=== PATIENT | female | born 1995 | race African-American/Black ===

== ENCOUNTER 2019-01-29 17:07 | Emergency (ER) | payer OTHER ==
[2019-01-29] MEDS ORDERED: MECLIZINE HCL 25 MG TABLET (FP) PO ONE (17:10)
--- NOTE | 2019-01-29 17:10 | PDOC ---
Rapid Medical Evaluation Time Seen by Provider: 01/29/19 17:07 Medical Evaluation: 01/29/19 17:08 CC: Headache x9 days with brief episodes of dizziness PE: No focal findings. Orders: ekg, meclizine Patient will proceed to ED for continued evaluation. Discharge Disposition - Diagnosis Dizziness - Referrals - Patient Instructions - Post Discharge Activity
[2019-01-29 17:12] VITALS: BP 140/86; PULSE 73; TEMP 98.6; BMI 31.9
[2019-01-29] MEDS ORDERED: MECLIZINE HCL 25 MG TABLET (FP) ONE (17:25)
--- NOTE | 2019-01-29 17:39 | PDOC ---
History of Present Illness - General Chief Complaint: Lightheaded Stated Complaint: Headache Time Seen by Provider: 01/29/19 17:07 - History of Present Illness Initial Comments: 01/29/19 17:39 CHIEF COMPLAINT: dizziness HISTORY OF PRESENT ILLNESS: 23 yo F with no recent hx of otitis media (this summer) presents to [facility] with headache/dizziness x 1 week. Patient reports waking up with a headache the and gradually throughout the day she feels dizzy. She reports the dizziness is worse when changing position "like when I get up". She endorses nausea yesterday but denies vomiting, denies nausea today. Patient states she is on control and denies any chance of . No recent travel or sick contacts. PAST MEDICAL HISTORY: Denies past medical history FAMILY HISTORY: Denies SOCIAL HISTORY:Denies tobacco, alcohol, illicit drug use. SURGICAL HISTORY: Denies ALLERGIES: No known drug allergies REVIEW OF SYSTEMS General/Constitutional: Denies fever or chills. Denies weakness, weight change. HEENT: Denies change in vision. Denies ear pain or discharge. Denies sore throat. Cardiovascular: Denies chest pain or shortness of breath. Respiratory: Denies cough, wheezing, or hemoptysis. Gastrointestinal: Denies nausea, vomiting, diarrhea or constipation. Denies rectal bleeding. Genitourinary: Denies dysuria, frequency, or change in urination. Musculoskeletal: Denies joint or muscle swelling or pain. Denies neck or back pain. Skin and breasts: Denies rash or easy bruising. Neurologic: Headache, dizziness. Denies loss of consciousness, or loss of sensation. Psychiatric: Denies depression or anxiety. PHYSICAL EXAM General Appearance: Well-appearing, appropriately dressed. No apparent distress. HEENT: EOMI, PERRLA, normal ENT inspection, normal voice, TMs normal, pharynx normal. No conjunctival pallor. No photophobia, scleral icterus. Neck: Supple. Trachea midline. No tenderness, rigidity, carotid bruit, stridor , lymphadenopathy, or thyromegaly. Respiratory/Chest: Lungs CTAB. No shortness of breath, chest tenderness, respiratory distress, accessory muscle use. No crackles, rales, rhonchi, stridor , wheezing, dullness Cardiovascular: RRR. S1, S2. No JVD, murmur, bradycardia, tachycardia. Vascular Pulses: Dorsalis-Pedis (R): 2+, Dorsalis-Pedis (L): 2+ Gastrointestinal/Abdominal: Normal bowel sounds. Abdomen soft, non-distended. No tenderness or rebound tenderness. No organomegaly, pulsatile mass, guarding , hernia, hepatomegaly, splenomegaly. Lymphatic: No adenopathy, tenderness. Musculoskeletal/Extremities: Normal inspection. FROM of all extremities, normal capillary refill. Pelvis Stable. No CVA tenderness. No tenderness to extremities, pedal edema, swelling, erythema or deformity. Integumentary: Appropriate color, dry, warm. 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 Fully oriented, alert. Appropriate mood/affect. Motor strength 5/5. No appreciable EOM palsy, facial droop or sensory deficit. A&Ox3, follow commands, respond appropriately CN2-12: conjugate gaze, pupil round, equal and reactive to light. Visual field full to confrontation. EOMI without nystagmus, pursuit is smooth without saccade. Facial sensation and muscle activation intact bilaterally. Hearing intact bilaterally. Palate elevate symmetrically. Shoulder shrug and neck turn full strength. Tongue protrude midline. Motor: UE and LE strength 5/5 throughout bilaterally. Muscle tone and bulk normal. L shoulder abd 5/5 elbow F/E 5/5 wrist F/E 5/5 finger F/E 5/5 R shoulder abd 5/5 elbow F/E 5/5 wrist F/E 5/5 finger F/E 5/5 L hip F/E 5/5 knee F/E 5/5 ankle F/E 5/5 R hip F/E 5/5 knee F/E 5/5 ankle F/E 5/5 Sensory: pin prick & temp : BUE & BLE intact and equal bilaterally Vibration & propioception: intact bilaterally at 1st MCP and MTP joints. no sensory level noted on trunk Reflex: biceps brachioradialis triceps patellar achilles L 2+ 2+ 2+ 2+ 2+ R 2+ 2+ 2+ 2+ 2+ Plantar reflex downwards bilaterally. Cerebellar: Rapid-alternating movement with regular rhythm without bradykinesia. Rihfyu-vy-ulbg and fpad-di-tqoz intact bilaterally without dysmetria or overshoot. Gait narrow based. No shuffling. Full hip flexion and knee flexion. Negative Romberg No involuntary movement noted. No pronator drift. No clonus. 01/29/19 17:46 01/29/19 17:47 Past History - Past Medical History Allergies/Adverse Reactions: Allergies Allergy/AdvReac Type Severity Reaction Status Date / Time No Known Allergies Allergy Verified 01/29/19 17:12 Home Medications: Ambulatory Orders Meclizine HCl [Antivert -] 25 mg PO TID PRN #21 tablet 01/29/19 COPD: No - Immunization History Immunization Up to Date: No - Psycho Social/Smoking Cessation Hx Smoking History: Never smoked Have you smoked in the past 12 months: No Information on smoking cessation initiated: No Hx Alcohol Use: No Drug/Substance Use Hx: No *Physical Exam - Vital Signs Last Vital Signs Temp Pulse Resp BP Pulse Ox 98.6 F 73 18 140/86 100 01/29/19 17:10 01/29/19 17:10 01/29/19 17:10 01/29/19 17:10 01/29/19 17:10 Medical Decision Making - Medical Decision Making 01/29/19 17:46 23 yo F with no PMH presents to [facility] with headache/dizziness x 1 week. -meclizine, EKG ordered in triage EKG normal. Advised patient to take medication as prescribed and follow up with neurology if symptoms persist past 1 week. Advised patient of signs and symptoms for return to ED. Patient verbalized understanding and agrees to plan. Discharge - Discharge Information Problems reviewed: Yes Clinical Impression/Diagnosis: Vertigo Condition: Stable Disposition: HOME - Admission No - Additional Discharge Information Prescriptions: Meclizine HCl [Antivert -] 25 mg PO TID PRN #21 tablet PRN Reason: Vertigo - Follow up/Referral - Patient Discharge Instructions Patient Printed Discharge Instructions: DI for Benign Paroxysmal Positional Vertigo, How to Perform [place] Vertigo Exercises - Post Discharge Activity Work/Back to School Note: Back to Work
[2019-01-29 18:02] LABS: URINE APPEARANCE CLEAR; URINE BILIRUBIN NEGATIVE (NEGATIVE); URINE COLOR YELLOW; URINE GLUCOSE (UA) NEGATIVE (NEGATIVE); URINE KETONE NEGATIVE (NEGATIVE); URINE LEUK ESTERASE NEGATIVE (NEGATIVE); URINE NITRITE NEGATIVE (NEGATIVE); URINE PROTEIN NEGATIVE (NEGATIVE); URINE UROBILINOGEN 0.2 mg/dL (0.2-1.0)
--- NOTE | 2019-01-30 09:53 | EKG ---
Test Reason : Blood Pressure : / mmHG Vent. Rate : 060 BPM Atrial Rate : 060 BPM P-R Int : 144 ms QRS Dur : 078 ms QT Int : 412 ms P-R-T Axes : 034 021 032 degrees QTc Int : 412 ms NORMAL SINUS RHYTHM NORMAL ECG NO PREVIOUS ECGS AVAILABLE Confirmed by JERRY DAVENPORT, LENY ([id number]) on 01/30/2019 9:53:21 AM Referred By: Confirmed By:LENY EDWARDS MD
== END 2019-01-29 18:37 | disposition home or self-care (01) ==
LOC: JERFT 17:07
DX: R42 Dizziness and giddiness (principal)
CPT/HCPCS: 81003; 84703; 87086; 93005; 93010; 99282-25